=== PATIENT | male | born 1980 | race American Indian/Alaskan Native ===

== ENCOUNTER 2019-03-04 17:27 | Emergency (ER) | payer OTHER ==
[2019-03-04] MEDS: PERCOCET 5/325 PO ONE (18:56)
--- NOTE | 2019-03-04 19:17 | Emergency Department Report ---
ED Back Pain/Injury HPI - General Chief Complaint: Extremity Injury, Lower Stated Complaint: W/C (R) KNEE PAIN Time Seen by Provider: 03/04/19 18:44 Source: patient Limitations: No Limitations - History of Present Illness Initial Comments: 39 YO AA MALE COMES TO ER VIA POV SP FALL AT WORK. HE WAS WORKING ON MOVIE SET AND FELL ON RIGHT KNEE. EMT TOLD HIM IT COULD BE ACL INJURY SO HE CAME TO ER. - Related Data Previous Rx's Medication Instructions Recorded Last Taken Type Ibuprofen [Motrin] 800 mg PO Q8HR PRN #30 tablet 03/04/19 Unknown Rx Allergies Allergy/AdvReac Type Severity Reaction Status Date / Time No Known Allergies Allergy Unverified 03/04/19 17:31 ED Review of Systems ROS: Stated complaint: W/C (R) KNEE PAIN Other details as noted in HPI Comment: All other systems reviewed and negative ED Past Medical Hx - Past Medical History Medical history: asthma ED Back Pain Physical Exam - Exam General: Vital signs noted. No distress. Alert and acting appropriately. NO JOINT LINE TENDERNESS NO EFFUSION CAN EXTEND NO ABRASION/LAC DP PLUS 2 NEUROVASC INTACT Back/Abdomen: No Abdominal Tenderness, No Perithoracic Tenderness, No Perilumbar Tenderness, No Sacroiliac Tenderness, No Flank Tenderness, No Straight Leg Raise Pain Neuro: Yes Normal Sensation, Yes Normal DTR's, Yes Normal Gait (LIMITED WITH PAIN), No Motor Weakness Ed Back Pain Tests - Tests Tests: Normal X Rays ED Medical Decision Making - Radiology Data Radiology results: report reviewed, image reviewed - Medical Decision Making XRAY NEG IMMOBILIZE CRUTCHES MEDICATED FOR PAIN DC HOME WITH ORTHO FOLLOW UP. DISCUSSED WITH PT SOFT TISSUE/KNEE ETC. VERBALIZES UNDERSTANDING Vital Signs 03/04/19 20:00 Temperature 98.6 F Pulse Rate 74 Respiratory 16 Rate Blood Pressure 168/84 [Left] O2 Sat by Pulse 100 Oximetry - Differential Diagnosis RO FX Critical care attestation.: If time is entered above; I have spent that time in minutes in the direct care of this critically ill patient, excluding procedure time. ED Disposition Clinical Impression: Knee pain Disposition: DC-01 TO HOME OR SELFCARE Is pt being admited?: No Does the pt Need Aspirin: No Condition: Stable Instructions: Knee Pain (ED) Additional Instructions: ICE REST ELEVATE MED ORDERED FOLLOW UP WITH ORTHO MD FOR FURTHER TESTING XRAY NORMAL TODAY Prescriptions: Ibuprofen [Motrin] 800 mg PO Q8HR PRN #30 tablet PRN Reason: Pain, Moderate (4-6) Referrals: LINH BAZAN MD [Staff Physician] - 3-5 Days Time of Disposition: 20:16
--- NOTE | 2019-03-04 20:03 | XRay Report ---
RIGHT KNEE 3 VIEW(S) INDICATION / CLINICAL INFORMATION: Pain and swelling in the right knee COMPARISON: None available. FINDINGS: Limited examination due to suboptimal positioning. BONES / JOINT(S): No acute fracture or subluxation. No significant arthritis. SOFT TISSUES: No significant abnormality. ADDITIONAL FINDINGS: None. IMPRESSION: 1. No acute abnormality within limitations of suboptimal positioning. Signer Name: Jarett Barnes MD Signed: 03/04/2019 7:58 PM Workstation Name: [id number]
[2019-03-04 20:23] VITALS: BP 168/84
== END 2019-03-04 20:00 | disposition home or self-care (01) ==
LOC: ED 17:27
DX: M25.561 Pain in right knee (principal)